=== PATIENT | female | born 1995 | race Caucasian/White ===

== ENCOUNTER 2016-03-10 08:54 | Emergency (ER) | payer OTHER ==
[2016-03-10 10:28] VITALS: BP 111/60
--- NOTE | 2016-03-10 10:50 | UC ---
Complaint Female HPI - HPI Summary HPI Summary: Patient has had dysuria and lower abdominal pressure for 2 days. she also has increased sinus pressure. - History Of Current Complaint Chief Complaint: UCGU Stated Complaint: URINARY COMPLAINT Time Seen by Provider: 03/10/16 10:09 Hx Obtained From: Patient Hx Last Menstrual Period: 02/13/16 ?: No Onset/Duration: Sudden Onset, Lasting Days Timing: Constant Severity Initially: Moderate Severity Currently: Moderate Pain Intensity: 6 Pain Scale Used: 0-10 Numeric Character: Burning, Cramping Aggravating Factor(s): Urination Associated Signs And Symptoms: Positive: Negative - Allergies/Home Medications Allergies/Adverse Reactions: Allergies Allergy/AdvReac Type Severity Reaction Status Date / Time No Known Allergies Allergy Verified 03/10/16 09:45 Home Medications: Home Medications Dextromethorphan-Phenylephrine [Vicks Dayquil Cold & Flu] 2 cap PO ONCE PRN [History Confirmed 03/10/16] guaiFENesin ER TAB [Mucinex*] 600 mg PO DAILY 03/10/16 [History Confirmed ] PMH/Surg Hx/FS Hx/Imm Hx Previously Healthy: Yes - Surgical History Surgical History: None Surgery Procedure, Year, and Place: denies - Family History Known Family History: Positive: Renal Disease - SISTER HAS ABNORMAL KIDNEY FUNCTION/FREQUENT UTIS - Social History Alcohol Use: Occasionally Substance Use Type: None Smoking Status (MU): Never Smoked Tobacco Review of Systems Skin: Negative Eyes: Negative ENT: Nasal Discharge Respiratory: Negative Cardiovascular: Negative Gastrointestinal: Abdominal Pain Genitourinary: Dysuria, Frequency Motor: Negative Neurovascular: Negative Musculoskeletal: Negative Neurological: Negative Psychological: Negative All Other Systems Reviewed And Are Negative: Yes Physical Exam Triage Information Reviewed: Yes Appearance: Well-Appearing, Well-Nourished, Pain Distress Vital Signs: Initial Vital Signs Temp 98.5 F 03/10/16 09:38 Pulse 61 03/10/16 09:38 Resp 20 03/10/16 09:38 BP 111/60 03/10/16 09:38 Pulse Ox 99 03/10/16 09:38 Vital Signs Reviewed: Yes Eye Exam: Normal Eyes: Positive: Conjunctiva Clear ENT Exam: Normal ENT: Positive: Hearing grossly normal, Pharyngeal erythema, Nasal congestion, TMs normal Dental Exam: Normal Neck exam: Normal Neck: Positive: Supple, Nontender, No Lymphadenopathy Respiratory Exam: Normal Respiratory: Positive: Chest non-tender, Lungs clear, Normal breath sounds Cardiovascular Exam: Normal Cardiovascular: Positive: RRR, No Murmur, Pulses Normal Abdominal Exam: Other - lower abdominal tenderness Abdomen Description: Positive: No Organomegaly, Soft Bowel Sounds: Positive: Present Musculoskeletal Exam: Normal Musculoskeletal: Positive: Strength Intact, ROM Intact, No Edema Neurological Exam: Normal Neurological: Positive: Alert, Muscle Tone Normal Psychological Exam: Normal Skin Exam: Normal Complaint Female Dx - Course Course Of Treatment: hx obtained, exam performed, medications reviewed. UA pos for leuks, medications prescribed for UTI and sinus congestion - Differential Dx/Diagnosis Differential Diagnosis/HQI/PQRI: Sexually Transmitted Disease, Ureteral Stone, Urinary Tract Infection Provider Diagnoses: UTI. sinus congestion, right maxillary Discharge - Discharge Plan Condition: Stable Disposition: HOME Prescriptions: Cephalexin CAP* [Keflex CAP*] 500 mg PO BID #14 cap predniSONE TAB* [Deltasone TAB*] 40 mg PO DAILY #10 tab Additional Instructions: take the medications as prescribed. Increase your fluid intake and follow up with any increase ing symptoms.
== END 2016-03-10 11:00 | disposition home or self-care (01) ==
LOC: UCCORT 08:54
DX: N39.0 Urinary tract infection, site not specified (principal); R09.81 Nasal congestion
CPT/HCPCS: 81025; 87077; 87086; 87186; 99212; G0463

== ENCOUNTER 2016-05-08 18:24 | Emergency (ER) | payer OTHER ==
[2016-05-08 20:20] VITALS: BP 98/50
--- NOTE | 2016-05-08 20:28 | UC ---
FLU HPI - HPI Summary HPI Summary: The patient comes in today for: 1. Fever, body aches, sore throat, stuffy nose, headache. Onset: Yesterday. Palliative/provocative: Advil helped a little. Quality: Ache Region: Total body. Severity: 0/10 Time: Comes and goes--body aches. Associated symptoms: Rhinitis: clear Cough: None. Dyspena: None. Temperature: 101.4 this afternoon. Acetaminaminophen taken at 3 PM. Eating: Good appetite Urination: normal. Vomiting/diarrhea: None. * - History of Current Complaint Chief Complaint: UCGeneralIllness Stated Complaint: FLU SYMPTOMS Time Seen by Provider: 05/08/16 20:21 Hx Obtained From: Patient Hx Last Menstrual Period: 04/21/16 ?: No - Allergy/Home Medications Allergies/Adverse Reactions: Allergies Allergy/AdvReac Type Severity Reaction Status Date / Time No Known Allergies Allergy Verified 05/08/16 20:20 PMH/Surg Hx/FS Hx/Imm Hx Previously Healthy: No - Family planning/BCP Endocrine History Of: Denies: Diabetes, Thyroid Disease, Hyperthyroidism, Hypothyroidism, Dyslipidemia Cardiovascular History Of: Denies: Cardiac Disorders, Hypertension, Pacemaker/ICD, Myocardial Infarction , Congestive Heart Failure, Atrial Fibrillation, Deep Vein Thrombosis, Bleeding Disorders Respiratory History Of: Denies: COPD, Asthma, Bronchitis, Pneumonia, Pulmonary Embolism GI/ History Of: Denies: Gastroesophageal Reflux, Ulcer, Gastrointestinal Bleed, Gall Bladder Disease, Kidney Stones, Diverticulitis, Renal Disease, Urosepsis Neurological History Of: Denies: TIA, CVA, Dementia, Seizures, Migraine Psychological History Of: Reports: Anxiety Denies: Depression, Bipolar Disorder, Schizophrenia, Post Traumatic Stress Disorder Cancer History Of: Denies: Lung Cancer, Colorectal Cancer, Breast Cancer, Prostate Cancer, Cervical Cancer Other History Of: Negative For: HIV, Hepatitis B, Hepatitis C, Anticoagulant Therapy - Surgical History Surgical History: None Surgery Procedure, Year, and Place: denies - Family History Known Family History: Positive: Cardiac Disease, Hypertension, Renal Disease - SISTER HAS ABNORMAL KIDNEY FUNCTION/FREQUENT UTIS - Social History Occupation: Student Alcohol Use: Occasionally Substance Use Type: None Smoking Status (MU): Never Smoked Tobacco - Immunization History Most Recent Influenza Vaccination: none Review of Systems Constitutional: Fever Skin: Negative Eyes: Negative ENT: Sore Throat, Nasal Discharge Respiratory: Cough Cardiovascular: Negative Gastrointestinal: Negative Genitourinary: Negative Musculoskeletal: Arthralgia, Myalgia Neurological: Headache All Other Systems Reviewed And Are Negative: Yes Physical Exam Triage Information Reviewed: Yes Appearance: Well-Appearing, No Pain Distress, Well-Nourished Vital Signs: Initial Vital Signs Temp 99.5 F 05/08/16 20:16 Pulse 65 05/08/16 20:16 Resp 15 05/08/16 20:16 BP 98/50 05/08/16 20:16 Pulse Ox 98 05/08/16 20:16 Vital Signs Reviewed: Yes Eyes: Positive: Conjunctiva Clear. Negative: Discharge ENT: Positive: Hearing grossly normal. Negative: Pharyngeal erythema, Nasal congestion, Nasal drainage, TM bulging, TM dull, TM red, Tonsillar swelling, Tonsillar exudate Dental: Negative: Gross Decay/Caries @, Dental Fracture @ Neck: Positive: Supple, Nontender, No Lymphadenopathy. Negative: Nuchal Rigidity Respiratory: Positive: Lungs clear, No respiratory distress, No accessory muscle use. Negative: Crackles, Wheezing Cardiovascular: Positive: RRR, No Murmur Abdomen Description: Positive: Nontender, No Organomegaly, Soft. Negative: Distended, Guarding Musculoskeletal: Positive: ROM Intact, No Edema Neurological: Positive: Alert, Muscle Tone Normal Psychological: Positive: Age Appropriate Behavior, Consolable Skin: Negative: rashes, breakdown Diagnostics - Laboratory Diagnostic Studies Completed/Ordered: Rapid flu: (-) Flu Course/Dx - Differential Dx/Diagnosis Provider Diagnoses: Viral syndrome Discharge - Discharge Plan Condition: Stable Disposition: HOME Patient Education Materials: Viral Syndrome (ED) Forms: *School Release Referrals: Non Staff,Doctor [Primary Care Provider] - 1 Week (Please see your primary care provider in about one to two weeks to see how well you are doing. If you get worse, please be seen sooner.)
[2016-05-08] MEDS ORDERED: Ibuprofen TAB* 400 MG PO ONE (20:46)
== END 2016-05-08 20:57 | disposition home or self-care (01) ==
LOC: UCCORT 18:24
DX: B34.9 Viral infection, unspecified (principal)
CPT/HCPCS: 87502; 99212; A9270-GY; G0463